=== PATIENT | female | born 1935 | race Caucasian/White ===

== ENCOUNTER 2024-09-16 16:20 | Emergency (ER) | payer BC, MEDICARE ==
[2024-09-16] MEDS: Acetaminophen 500 MG Tab PO ONE (16:59)
== END 2024-09-16 17:03 | disposition home or self-care (01) ==
LOC: DL.ED 16:20
DX: S01.112A Laceration without foreign body of left eyelid and periocular area, initial encounter (principal); Z88.8 Allergy status to other drugs, medicaments and biological substances; Z79.82 Long term (current) use of aspirin; Z79.890 Hormone replacement therapy; W01.198A Fall on same level from slipping, tripping and stumbling with subsequent striking against other object, initial encounter
CPT/HCPCS: 70450; 72125; 99282; 99284; A9270-GY